=== PATIENT | male | born 1935 | race Hispanic/Latino ===

== ENCOUNTER 2019-06-27 21:16 | Emergency (ER) | payer MEDICARE ==
--- NOTE | 2019-06-27 23:22 | XRay Report ---
Acute abdomen series 3 views [id number] INDICATION: Right-sided pain, shortness of breath COMPARISON: Chest x-ray 03/30/2015 Pacer and cardiac surgical changes are again seen. Heart is enlarged. Mildly congested appearance is noted. No definite areas consolidation are seen. No pneumothorax or pneumoperitoneum are noted. Bowel gas pattern shows gas in the colon. I do not see convincing evidence of small bowel obstruction. Cho lecystectomy changes are noted. Calcifications in the pelvis probably are vascular. Signer Name: Kilo Guevara MD Signed: 06/27/2019 11:18 PM Workstation Name: [id number]
[2019-06-27] MEDS ORDERED: ACETAMINOPHEN 325 MG TAB PO ONE (23:48)
[2019-06-28 00:19] LABS: Basophils % (Auto) 0.3 % (0.0-1.8); Eosinophils % (Auto) 0.5 % (0.0-4.3); Hematocrit 34.4 % (35.5-45.6); Hemoglobin 11.5 gm/dl (11.8-15.2); Lymphocytes # (Auto) 1.8 K/mm3 (1.2-5.4); Lymphocytes % (Auto) 17.8 % (13.4-35.0); Mean Corpuscular HGB Conc 34 % (32-34); Mean Corpuscular Volume 94 fl (84-94); Monocytes # (Auto) 0.8 K/mm3 (0.0-0.8); Monocytes % (Auto) 7.9 % (0.0-7.3); Platelet Count 196 K/mm3 (140-440); Red Blood Count 3.66 M/mm3 (3.65-5.03)
[2019-06-28 00:43] LABS: Bilirubin,Urine NEG (Negative); Blood,Urine NEG (Negative); Color,Urine Yellow (Yellow); Protein,Urine <15 mg/dL mg/dL (Negative); Urobilinogen,Urine < 2.0 mg/dL (<2.0); WBC,Urine < 1.0 /HPF (0.0-6.0)
[2019-06-28 00:45] LABS: Calcium 9.3 mg/dL (8.4-10.2)
--- NOTE | 2019-06-28 01:28 | Cat Scan Report ---
CT abdomen pelvis wo con INDICATION: right flank pain. TECHNIQUE: All CT scans at this location are performed using CT dose reduction for ALARA by means of automated e xposure control. COMPARISON: None available. FINDINGS: Chronic lung disease but no acute disease in the lung bases. Heart is mildly enlarged. Cholecystectomy. Liver, spleen, pancreas, kidneys and adrenals are negative on this noncontrast exam. Incidental bilateral renal cysts. Abdominal aorta is normal in size. No adenopathy. Postop change involving the ascending colon. Pelvis Prostate is markedly enlarged, but urinary bladder appears negative. No free fluid or inflammation. A ppendix cannot be identified. Osteopenia, but no acute skeletal lesions. IMPRESSION: No acute abnormalities. Signer Name: Ian Yu MD Signed: 06/28/2019 1:23 AM Workstation Name: [id number]
[2019-06-28] MEDS ORDERED: IPRATROPIUM/ALBUTEROL SULFATE 3 ML AMPUL.NEB IH ONE (02:13)
--- NOTE | 2019-06-28 02:38 | Emergency Department Report ---
HPI - General Chief Complaint: Abdominal Pain Time Seen by Provider: 06/27/19 22:20 - HPI HPI: 83-year-old male presents to the emergency department by EMS with a complaint of right-sided flank pain that started this morning. He had some mild discomfort when he first woke but says that it was much more intense by the time he was eating breakfast. He did not take anything for his symptoms prior to presentation but when the discomfort did not improve he decided to come in this evening for evaluation. 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 He has a primary care physician, Dr. Jonathan Clinton, but has not seen them regarding his symptoms. He denies any problems with bowel or bladder, fever, nausea or vomiting. ED Past Medical Hx - Past Medical History Previous Medical History?: Yes Hx Hypertension: Yes Hx Heart Attack/AMI: No Hx Congestive Heart Failure: Yes Hx COPD: Yes Hx HIV: No - Surgical History Past Surgical History?: Yes Hx Open Heart Surgery: Yes (2001) Hx Pacemaker: Yes Hx Cholecystectomy: No Hx Appendectomy: No Hx Breast Surgery: No - Social History Smoking Status: Never Smoker - Medications Home Medications: Home Medications Medication Instructions Recorded Confirmed Last Taken Type Albuterol Sulfate [Ventolin HFA] 2 puff IH Q4H PRN 03/30/15 03/30/15 Unknown History Aspirin [Aspirin BABY CHEW TAB] 81 mg PO QDAY 03/30/15 03/30/15 Unknown History Donepezil [Aricept] 10 mg PO QDAY 03/30/15 03/30/15 Unknown History Esomeprazole Magnesium [NexIUM] 40 mg PO QDAY 03/30/15 03/30/15 Unknown History Fenofibrate,Micronized (Nf) 134 mg PO QDAY 03/30/15 03/30/15 Unknown History [Fenofibrate (Nf)] Finasteride [Proscar] 5 mg PO QDAY 03/30/15 03/30/15 Unknown History Furosemide [Lasix TAB] 40 mg PO BID 03/30/15 03/30/15 Unknown History Metoprolol Xl [Metoprolol 50 mg PO QDAY 03/30/15 03/30/15 Unknown History SUCCINATE ER TAB] Potassium Chloride [K-Dur] 10 meq PO QDAY 03/30/15 03/30/15 Unknown History Pravastatin [Pravachol] 40 mg PO QHS 03/30/15 03/30/15 Unknown History Rivastigmine Tartrate 6 mg PO BID 03/30/15 03/30/15 Unknown History [Rivastigmine] Temazepam 15 mg PO QDAY 03/30/15 03/30/15 Unknown History ED Review of Systems ROS: Stated complaint: RT SIDE FLANK PAIN Other details as noted in HPI Comment: All other systems reviewed and negative Constitutional: denies: chills, fever Eyes: denies: eye pain, vision change ENT: denies: ear pain, throat pain Respiratory: denies: cough, shortness of breath Cardiovascular: denies: chest pain, palpitations Gastrointestinal: abdominal pain (right flank and abdominal pain). denies: nausea, vomiting, diarrhea Genitourinary: denies: dysuria Musculoskeletal: denies: back pain, arthralgia Skin: denies: rash, lesions Neurological: denies: headache, weakness Physical Exam - Physical Exam Vital Signs: Vital Signs 06/27/19 21:20 Pulse Rate 62 Respiratory 22 Rate Blood Pressure 170/84 [Right] O2 Sat by Pulse 95 Oximetry Physical Exam: GENERAL: The patient is well-developed well-nourished. HEENT: Normocephalic. Atraumatic. Patient has moist mucous membranes. EYES: Extraocular motions are intact. NECK: Supple. Trachea is midline CHEST/LUNGS: Slightly coarse breath sounds. No tachypnea or accessory muscle use. There is no respiratory distress noted. HEART/CARDIOVASCULAR: Regular. There is no tachycardia. ABDOMEN: Abdomen is soft. There is some right-sided abdominal and flank tende rness to palpation. No guarding. Patient has normal bowel sounds. There is no abdominal distention. SKIN: Skin is warm and dry. NEURO: The patient is awake, alert, and oriented. The patient is cooperative. Normal speech. MUSCULOSKELETAL: There is no tenderness or deformity. There is no evidence of acute injury. ED Course Vital Signs 06/27/19 21:20 Pulse Rate 62 Respiratory 22 Rate Blood Pressure 170/84 [Right] O2 Sat by Pulse 95 Oximetry ED Medical Decision Making - Lab Data Result diagrams: 06/28/19 00:00 06/28/19 00:00 - Radiology Data Radiology results: report reviewed, image reviewed interpreted by me: Abdominal x-ray shows nonspecific nonobstructive bowel gas Chest x-ray does not show any pneumonia, pleural effusions, focal consolidation, pneumothorax or any acute process. CT abdomen pelvis wo con INDICATION: right flank pain. TECHNIQUE: All CT scans at this location are performed using CT dose reduction for ALARA by means of automated exposure control. COMPARISON: None available. FINDINGS: Chronic lung disease but no acute disease in the lung bases. Heart is mildly enlarged. Cholecystectomy. Liver, spleen, pancreas, kidneys and adrenals are negative on this noncontrast exam. Incidental bilateral renal cysts. Abdominal aorta is no rmal in size. No adenopathy. Postop change involving the ascending colon. Pelvis Prostate is markedly enlarged, but urinary bladder appears negative. No free fluid or inflammation. Appendix cannot be identified. Osteopenia, but no acute skeletal lesions. IMPRESSION: No acute abnormalities. - Medical Decision Making This patient came in with a complaint of right-sided abdominal and flank pain that started this morning. There is some mild reproducible pain to palpation. The abdomen is not rigid, distended nor toxic in appearance. Patient's labs have been unremarkable according CBC, metabolic panel, lipase and urinalysis. The only abnormality was some renal insufficiency but the patient has some chronic kidney disease and is unchanged from the last time he was here in 2015. An acute abdominal series was done with a chest and abdominal x-ray that did not show any acute process. A CT scan of the abdomen and pelvis without contrast was done that does not show any acute abdominal or pelvic pathology. This patient was reevaluated multiple times for multiple hours and is resting comfortably. The patient has good follow-up with primary care and has been given a referral for a local groover operator. He has been instructed to return to the emergency Department with any worsening of his symptoms or any acute distress. - Differential Diagnosis colitis, diverticulitis, nephrolithiasis, malignancy Critical Care Time: No Critical care attestation.: If time is entered above; I have spent that time in minutes in the direct care of this critically ill patient, excluding procedure time. ED Disposition Clinical Impression: Right flank pain Abdominal pain Qualifiers: Abdominal location: right lower quadrant Qualified Code(s): R10.31 - Right low er quadrant pain Hypertension Qualifiers: Hypertension type: essential hypertension Qualified Code(s): I10 - Essential (primary) hypertension Disposition: TO HOME OR SELFCARE Is pt being admited?: No Condition: Stable Instructions: Abdominal Pain (ED), Hypertension (ED), Flank Pain (ED) Additional Instructions: Please follow-up with your primary care physician in the next few days. I am giving him a referral for a local groover operator, Dr. Jean, to follow up regarding your abdominal and flank pains. Return to the emergency Department with any worsening of your symptoms or any acute distress. Referrals: DOMINGA JEAN MD [Staff Physician] - 2-3 Days PCP, Your [Other] - 2-3 Days Time of Disposition: 02:39
[2019-06-28 05:10] VITALS: BP 147/89
== END 2019-06-28 05:11 | disposition home or self-care (01) ==
LOC: ED 21:16
DX: R10.31 Right lower quadrant pain (principal); I11.0 Hypertensive heart disease with heart failure; I50.9 Heart failure, unspecified
CPT/HCPCS: 36415; 74022; 74176; 80053; 81001; 83690; 85025; 94640; 94644; 99284